=== PATIENT | female | born 1955 | race Two or more races ===

== ENCOUNTER → 2016-12-31 | Outpatient (CLI) | payer OTHER ==
[~2016-12-31] MED LIST: ADVAIR 250-501 EACH IH; ALBUTEROL17 GM INH; ATARAX PO
--- NOTE | ~2016-12-31 | MR18 ---
[facility] A Service of [facility] RADIOLOGY TEXT RESULTS PATIENT: FILIPPO HYMAN LOCATION: [facility] : 57 UNIT #: [id number] AGE: [address]: Claus Plasencia II, MD SEX: F ORDER DR: [id number] [address] [id number] O MR#: [id number] Acc #: [id number] NAME: FILIPPO HYMAN. : 1955 SEX: F STUDY DATE/TIME: 12/31/2016 14:21 UNIT: [facility] ROOM: STUDY DESCRIPTION: MR Brain Wo Contrast Attending Physician: Claus Plasencia II., M.D. Referring Physician: Claus Plasencia II., M.D. Ordering Physician: Claus Plasencia II., M.D. Primary Care Physician: [facility], [facility], [facility] REPORT This report is preliminary unless electronic signature is present. EXAM Brain MRI without contrast. DATE OF STUDY 12/31/2016 PROCEDURE Routine unenhanced brain MRI. COMPARISON None. CLINICAL HISTORY Two year history of headache and memory loss, worsening for the past 3 months. FINDINGS There is no MR evidence of acute ischemia or other restricted diffusion. There is no hydrocephalus or extraaxial fluid collection. Normal flow voids are seen in the cerebral vessels. Brain parenchymal signal is within normal limits. A few tiny T2 hyperintensities are seen of doubtful significance. The extracranial structures appear normal. IMPRESSION Essentially normal negative brain MR without contrast. A few tiny nonspecific white matter T2 hyperintensities are seen of doubtful significance. Exam is otherwise unremarkable. Dictated by... Gustavo Barboza M.D. THIS IS AN ELECTRONICALLY VERIFIED REPORT [facility] A Service of [facility] RADIOLOGY TEXT RESULTS PATIENT: FILIPPO HYMAN LOCATION: [facility] : 57 UNIT #: [id number] AGE: [address]: Claus Plasencia II, MD SEX: F ORDER DR: Gustavo Barboza M.D. at 01/06/2017 5:21 PM TEV/jt TD: 01/01/2017 20:44 JOB #: [id number] MRI CENTER REPORT Page 1 of 1 COPY
== END | disposition home or self-care (01) ==
LOC: CMRI 12-23 09:00
DX: R41.3 Other amnesia (principal)
CPT/HCPCS: 70551